=== PATIENT | female | born 1995 | race Caucasian/White ===

== ENCOUNTER 2017-04-16 19:29 | Emergency (ER) | payer BC ==
[~2017-04-16] VITALS: Ht 162.6 cm; Wt 53.3 kg
[2017-04-16 19:48] VITALS: TEMP 36.6; Ht 162.6 cm; Wt 53.3 kg
[2017-04-16 20:30] LABS: BASO % 0.3 %; BASO ABS # 0.03 K/uL (0-0.2); COMPLETE YES; EOS % 0.7 %; HEMATOCRIT 37.4 % (37-47); IG% 0.2 %; LYMPH % 28.9 %; LYMPH ABS # 2.51 K/uL (1.2-3.4); MEAN CELL VOLUME 86.4 fL (80-100); MEAN CORPUSCULAR HEMOGLOBIN 29.1 pg (25-34); MEAN CORPUSCULAR HGB CONC 33.7 g/dl (32-36); MEAN PLATELET VOLUME 9.9 fL (7.4-10.4); MONO % 6.6 %; NEUT % 63.3 %; PLATELET COUNT 243 K/uL (130-400); RED BLOOD COUNT 4.33 M/uL (4.2-5.4); WHITE BLOOD COUNT 8.69 K/uL (4.8-10.8)
[2017-04-16 20:40] LABS: PARTIAL THROMBOPLASTIN RATIO 1.1; PROTHROMBIN TIME (PATIENT) 10.3 SECONDS (9.0-12.0)
[2017-04-16 20:49] LABS: PREG INTERNAL NEGATIVE QC NEG CLEAR BACKGROUND; PREG INTERNAL POSITIVE QC POS CONTROL LINE
--- NOTE | 2017-04-16 20:53 | DIAGNOSTIC IMAGING REPORT ---
ULTRASOUND RIGHT VENOUS DOPP LOWER EXT UNILAT CLINICAL HISTORY: Right leg pain. COMPARISON STUDY: No previous studies for comparison. FINDINGS: Real-time and color flow Doppler imaging were performed. Flow was seen within the femoral, popliteal and calf veins with no intraluminal thrombus demonstrated. The saphenous vein is patent. IMPRESSION: No evidence of right lower extremity DVT. Electronically signed by: Joe Shah M.D. 04/16/2017 8:52 PM Dictated Date/Time: 04/16/2017 8:52 PM
[2017-04-16 20:57] LABS: BUN/CREATININE RATIO 15.1 (10-20); CALCIUM 8.6 mg/dl (8.5-10.1); CREATININE 0.76 mg/dl (0.60-1.20); MAGNESIUM 2.2 mg/dl (1.8-2.4); POTASSIUM 3.5 mmol/L (3.5-5.1)
[2017-04-16 21:00] LABS: ALB/GLOB RATIO 1.1 (0.9-2)
[2017-04-16] MEDS ORDERED: CEPHALEXIN 500MG HOME PACK 1 EA BTL PO STA (21:37)
[2017-04-16] MEDS ORDERED: SEPTRA DS HOME PACK 1 EA VIAL PO STA (21:37)
[2017-04-16] MEDS ORDERED: CEPH500C PO (21:40)
[2017-04-16] MEDS ORDERED: SULF800T23 PO (21:40)
--- NOTE | 2017-04-16 21:41 | EMERGENCY ROOM VISIT NOTE ---
History First contact with patient: 19:55 Chief Complaint: BITE Stated Complaint: LEG PAIN AND BITE RIGHT History of Present Illness The patient is a 22 year old female who presents to the Emergency Room via private vehicle with complaints of "Leg pain and bite right". The patient states that she was in [facility] from March 19 until April 13. This was during the study abroad. She received various bug bites during that time. She states that 2 days ago the however, she noticed pain and itching on the right posterior thigh 2 days ago. She states that it began to turn red today. She was in the [place] a lot while in [facility]. She denies any nausea, vomiting, fevers , chills, other symptoms. There is minimal pain around the area. Review of Systems A complete 10-point Review of Systems was discussed with the patient, with pertinent positives and negatives listed in the History of Present Illness. All remaining Review of Systems questions can be considered negative unless otherwise specified. Past Medical/Surgical History Medical Problems: (1) Asthma (2) Pneumonia Surgical Problems: (1) H/O wisdom tooth extraction (2) History of tonsillectomy Family History Diabetes mellitus Hypertension Kidney stones Social History Smoking Status: Never Smoker Alcohol Use: none Drug Use: none Housing Status: lives with roommate Occupation Status: [employer] student Current/Historical Medications Scheduled Cephalexin Monohydrate (Keflex), 500 MG PO QID Sulfa/Trimethoprim (Bactrim Ds 800MG/160MG), 1 TAB PO BID Allergies Coded Allergies: Acetaminophen (Verified Allergy, Unknown, fever, 11/21/15) Physical Exam Vital Signs Date Time Temp Pulse Resp B/P (MAP) Pulse Ox O2 Delivery O2 Flow Rate FiO2 04/16/17 21:51 71 16 111/74 98 Room Air 04/16/17 19:48 36.6 92 18 110/74 99 Room Air Physical Exam VITAL SIGNS - Vital signs and nursing notes were reviewed. Patient is afebrile , normotensive, non-tachycardic and is saturating well on room air at 99%. GENERAL -22-year-old female appearing her stated age who is in no acute distress. Communicates well with provider and answers questions appropriately. SKIN -rule out the posterior proximal right thigh there is a 3 cm x 3 cm circular slightly raised erythematous lesion with a small gold colored center. No retained foreign body or insect. This is not fluctuant. There is tenderness to palpation overlying this region. No fluctuant abscess. Medical Decision & Procedures ER Provider Diagnostic Interpretation: ULTRASOUND RIGHT VENOUS DOPP LOWER EXT UNILAT CLINICAL HISTORY: Right leg pain. COMPARISON STUDY: No previous studies for comparison. FINDINGS: Real-time and color flow Doppler imaging were performed. Flow was seen within the femoral, popliteal and calf veins with no intraluminal thrombus demonstrated. The saphenous vein is patent. IMPRESSION: No evidence of right lower extremity DVT. Electronically signed by: Joe Shah M.D. 04/16/2017 8:52 PM Dictated Date/Time: 04/16/2017 8:52 PM Laboratory Results 04/16/17 20:15 Red Blood Count 4.33, Mean Corpuscular Volume 86.4, Mean Corpuscular Hemoglobin 29.1, Mean Corpuscular Hemoglobin Concent 33.7, Mean Platelet Volume 9.9, Neutrophils (%) (Auto) 63.3, Lymphocytes (%) (Auto) 28.9, Monocytes (%) (Auto) 6.6, Eosinophils (%) (Auto) 0.7, Basophils (%) (Auto) 0.3, Neutrophils # (Auto) 5.50, Lymphocytes # (Auto) 2.51, Monocytes # (Auto) 0.57, Eosinophils # (Auto) 0.06, Basophils # (Auto) 0.03 04/16/17 20:15 Test 04/16/17 20:15 White Blood Count 8.69 K/uL (4.8-10.8) Red Blood Count 4.33 M/uL (4.2-5.4) Hemoglobin 12.6 g/dL (12.0-16.0) Hematocrit 37.4 % (37-47) Mean Corpuscular Volume 86.4 fL (80-100) Mean Corpuscular Hemoglobin 29.1 pg (25-34) Mean Corpuscular Hemoglobin Concent 33.7 g/dl (32-36) Platelet Count 243 K/uL (130-400) Mean Platelet Volume 9.9 fL (7.4-10.4) Neutrophils (%) (Auto) 63.3 % Lymphocytes (%) (Auto) 28.9 % Monocytes (%) (Auto) 6.6 % Eosinophils (%) (Auto) 0.7 % Basophils (%) (Auto) 0.3 % Neutrophils # (Auto) 5.50 K/uL (1.4-6.5) Lymphocytes # (Auto) 2.51 K/uL (1.2-3.4) Monocytes # (Auto) 0.57 K/uL (0.11-0.59) Eosinophils # (Auto) 0.06 K/uL (0-0.5) Basophils # (Auto) 0.03 K/uL (0-0.2) RDW Standard Deviation 41.8 fL (36.4-46.3) RDW Coefficient of Variation 13.1 % (11.5-14.5) Immature Granulocyte % (Auto) 0.2 % Immature Granulocyte # (Auto) 0.02 K/uL (0.00-0.02) Prothrombin Time 10.3 SECONDS (9.0-12.0) Prothromb Time International Ratio 1.0 (0.9-1.1) Activated Partial Thromboplast Time 28.9 SECONDS (21.0-31.0) Partial Thromboplastin Ratio 1.1 Anion Gap 7.0 mmol/L (3-11) Est Creatinine Clear Calc Drug Dose 98.5 ml/min Estimated GFR () 130.0 Estimated GFR (Non- 112.1 BUN/Creatinine Ratio 15.1 (10-20) Calcium Level 8.6 mg/dl (8.5-10.1) Magnesium Level 2.2 mg/dl (1.8-2.4) Total Bilirubin 0.9 mg/dl (0.2-1) Aspartate Amino Transf (AST/SGOT) 30 U/L (15-37) Alanine Aminotransferase (ALT/SGPT) 54 U/L (12-78) Alkaline Phosphatase 79 U/L (45-117) Total Protein 7.3 gm/dl (6.4-8.2) Albumin 3.8 gm/dl (3.4-5.0) Globulin 3.5 gm/dl (2.5-4.0) Albumin/Globulin Ratio 1.1 (0.9-2) Human Chorionic Gonadotropin, Qual NEG (NEG) Medications Administered Medications (Trade) Dose Ordered Sig/Brandy Route Start Time Stop Time Status Last Admin Dose Admin Cephalexin Monohydrate (Keflex 500MG Home Pack) 1 homepack NOW STAT PO 04/16/17 21:37 04/16/17 21:38 DC 04/16/17 21:51 1 HOMEPACK Trimethoprim/ Sulfamethoxazole (Sulfameth/ Trimeth Ds 800/ 160MG Home Pack) 1 homepack UD STAT PO 04/16/17 21:37 04/16/17 21:38 DC 04/16/17 21:51 1 [facility] Medical Decision Patient was seen and evaluated as above. After obtaining a thorough history and physical examination IV access was initiated and the above workup was performed. I was not familiar with the potential insects from [facility], therefore did do research to identify potential insects. I do not suspect any emergent process at this time. Patient notes that Lyme disease is not prevalent in [facility]. This does not appear to be erythema migrans. I suspect that the patient likely has had a small insect bite with a developing cellulitis. For that she'll be given Keflex and Bactrim. She'll be given the first dose here with the remainder sent to the pharmacy. She is to have this rechecked in 48 hours by either following up with [facility] or returning here. She is to return with worsening. She was educated upon management today's findings, had questions about discharge, and was discharged home in good condition. Blood work does not reveal any underlying concerning blood dyscrasia, concerning leukocytosis, anemia or organ failure. In evaluation treatment this patient following differential diagnoses were entertained: Cellulitis, blood dyscrasia, among others. Impression Primary Impression: Insect bites Additional Impression: Cellulitis Departure Information Dispostion Home / Self-Care Condition GOOD Prescriptions Sulfa/Trimethoprim (Bactrim Ds 800MG/160MG) Tab 1 TAB PO BID for 9 Days, #18 TAB Prov: Jose Renee PA-C 04/16/17 Cephalexin Monohydrate (Keflex) 500 Mg Cap 500 MG PO QID for 9 Days, #36 CAP Prov: Jose Renee PA-C 04/16/17 Referrals No Doctor, Assigned (PCP) Patient Instructions My [facility] Additional Instructions You were seen in the emergency Department for an insect bite on her leg which has now turned to a skin infection. You be placed upon Keflex and Bactrim. These are to antibiotics. The Keflex 500 mg every 6 hours for 10 days. The Bactrim is every 12 hours for 10 days. 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 Is recommended to have this wound rechecked in 48 hours by either [facility] or by returning here. Please return here if any worsening. Please return for any fevers, chills, nausea vomiting or any new/concerning symptoms. Thank you. Problem Qualifiers
[2017-04-16 21:51] VITALS: BP 111/74; PULSE 71; O2SAT 98
== END 2017-04-16 21:52 | disposition home or self-care (01) ==
LOC: C.EDB 19:30 → C.EDD 21:52
DX: L03.115 Cellulitis of right lower limb (principal); S70.361A Insect bite (nonvenomous), right thigh, initial encounter; W57.XXXA Bitten or stung by nonvenomous insect and other nonvenomous arthropods, initial encounter; Y92.89 Other specified places as the place of occurrence of the external cause; J45.909 Unspecified asthma, uncomplicated; Z87.01 Personal history of pneumonia (recurrent); Z83.3 Family history of diabetes mellitus; Z82.49 Family history of ischemic heart disease and other diseases of the circulatory system; Z84.1 Family history of disorders of kidney and ureter